=== PATIENT | female | born 1960 | race Caucasian/White ===

== ENCOUNTER 2021-03-14 14:25 | Emergency (ER) | payer MEDICARE, OTHER | END 2021-03-14 14:39 | disposition left against medical advice (07) | LOC: ER1 14:25 | DX: Z53.21 Procedure and treatment not carried out due to patient leaving prior to being seen by health care provider (principal) ==

== ENCOUNTER 2022-04-09 16:03 | Emergency (ER) | payer MEDICARE, OTHER ==
[2022-04-09 16:37] LABS: HEMOGLOBIN 12.3 gm/dl (12.3-15.3); RED BLOOD COUNT 3.88 M/UL (4.00-5.10); WHITE BLOOD COUNT 3.3 K/UL (4.5-11.0)
[2022-04-09 17:00] LABS: BUN/CREATININE RATIO 21 (0-10)
== END 2022-04-09 17:41 | disposition home or self-care (01) ==
LOC: ER1 16:03
PROVIDERS: Physician Assistant
DX: I63.9 Cerebral infarction, unspecified (principal); E11.9 Type 2 diabetes mellitus without complications; Z88.0 Allergy status to penicillin
CPT/HCPCS: 70450; 71045; 80053; 80061; 81001; 82550; 82553; 83036; 84484; 85025; 85610; 85652; 85730; 86140; 93005; 99285; J2997